=== PATIENT | male | born 1950 | race Caucasian/White ===

== ENCOUNTER 2017-08-01 11:50 | Day surgery (SDC) | payer OTHER ==
[~2017-08-01] VITALS: Ht 177.8 cm; Wt 91.0 kg
[~2017-08-01 11:50] MED LIST: CARDIZEM CD,CA240 MG PO; CARDIZEM CD120 MG PO; CARDIZEM CD360 MG PO; CARDIZEM120 MG PO; DIGOXIN250 MCG PO; ELIQUIS5 MG PO; GAVISCON TABLE1 EACH PO; LISINOPRIL40 MG PO; METOPROLOL TART50 MG PO; NAPROXEN SODIU220 MG PO; PRILOSEC OTC20 MG PO; TYLENOL ARTHRI650 MG PO
== END 2017-08-01 14:02 | disposition home or self-care (01) ==
LOC: CATH 11:50
PROC: 5A2204Z Restoration of Cardiac Rhythm, Single (ICD-10-PCS; principal; 2017-08-01)
DX: I48.92 Unspecified atrial flutter (principal); I49.5 Sick sinus syndrome; I10 Essential (primary) hypertension; K21.9 Gastro-esophageal reflux disease without esophagitis
CPT/HCPCS: 93005